=== PATIENT | female | born 1990 | race Caucasian/White ===

== ENCOUNTER 2016-07-27 12:36 | Day surgery (SDC) | payer OTHER ==
[~2016-07-27] VITALS: Ht 157.5 cm; Wt 88.7 kg
[~2016-07-27 12:36] MED LIST: FERR250C3 PO; PREN1TAB17 PO
[2016-07-27 14:14] VITALS: Ht 157.5 cm; Wt 88.7 kg
[2016-07-27] MEDS ORDERED: NAPROXEN (14:26)
[2016-07-27] MEDS ORDERED: ADDERALL (14:26)
[2016-07-27] MEDS ORDERED: LIDOCAINE 4% SOLUTION 50 ML BTL ONE (14:38)
--- NOTE | 2016-07-27 15:23 | GILP ---
DATE OF PROCEDURE: 07/27/2016 PREOPERATIVE DIAGNOSIS: Abdominal pain, diarrhea. POSTOPERATIVE DIAGNOSIS: Small ulcers in the terminal ileum, rule out Crohn's disease. PROCEDURE DONE: Colonoscopy, ileoscopy and biopsy of the terminal ileum. SURGEON: Kenai Puckett MD DESCRIPTION OF PROCEDURE: The patient was put in left lateral decubitus after EGD. Further sedatio n was done with 1 mg of IV Versed and 25 mcg of fentanyl. Advanced an Olympus video colonoscope all the way to terminal ileum, nearly 18 inches inside, and examination of the terminal ileum with narr ow band and also on white light demonstrated a few ulcerations, small punched out ulcers. These wer e photographed and random biopsy and also biopsy was done to rule out Crohn's disease. Scope was sl owly withdrawn back and cecum, ascending colon normal. Transverse colon, descending colon normal, a nd sigmoid colon, rectum normal including retroflexion. Postop, patient had no complication. Plan will be to await for biopsy report to rule out Crohn's. Meanwhile, I may recommend inflammator y bowel disease panel if necessary, and also stool for calprotectin and this will be arranged as an outpatient. Dictated By: KENIA GARCIA Conf#: [id number] DID#: [id number] CC: KESHAWN REZA MD;*EndCC*
--- NOTE | 2016-07-27 15:25 | GILP ---
DATE OF PROCEDURE: 07/27/2016 PREOPERATIVE DIAGNOSIS: Abdominal pain, nausea. Past history of H. pylori, history of diarrhea. PROCEDURE DONE: Esophagogastroduodenoscopy and biopsy of duodenum and stomach. DESCRIPTION OF PROCEDURE: The patient was put in left lateral decubitus after obtaining informed co nsent. Posterior pharynx anesthetized with 4% Xylocaine. Very carefully advanced an Olympus video upper endoscope into the esophagus, stomach and duodenum. The findings were as follows: Tonsillar enlargement noted on the way in. Esophagus is otherwise normal. Stomach: Before entering the slid ing hiatal hernia about 4 cm in size, the stomach itself had mild gastritis. Random biopsies were d one in the body. Antrum is normal. Duodenum easily entered and up to third part. Biopsies randoml y done in the duodenum to rule out celiac sprue or any Giardia, because of her history of diarrhea. Then the scope was withdrawn. Retroflexion was done. Fundus was visualized. Then the scope was w ithdrawn. Patient had no complications. Plan will be to await for biopsy report and follow up as outpatient. Will proceed with colonoscopy as planned. Dictated By: ASIM GARCIA Conf#: [id number] DID#: [id number] CC: Micheal Gray MD;*End*
[2016-07-27 15:35] VITALS: BP 123/64; PULSE 76; RESP 18
[2016-07-27] MEDS ORDERED: FENTAnyl 50 MCG/ML VIAL ONE (15:44)
[2016-07-27] MEDS ORDERED: MIDAZOLAM 1 MG/ML 2 ML INJ ONE ×3 (15:44)
== END 2016-07-27 16:24 | disposition home or self-care (01) ==
LOC: GIL 12:36
PROVIDERS: ATTEND Internal Medicine
DX: K29.50 Unspecified chronic gastritis without bleeding (principal); K63.3 Ulcer of intestine
CPT/HCPCS: 43239; 45378; 84703; 88305; 88312; J2250; J3010; Z7610

== ENCOUNTER 2018-01-22 12:01 | Inpatient (IN) | END 2018-01-27 16:25 | disposition home or self-care (01) | DRG 494 ==

== ENCOUNTER 2018-01-28 23:45 | Emergency (ER) | END 2018-01-29 02:57 | disposition home or self-care (01) ==